=== PATIENT | female | born 1990 | race Caucasian/White ===

== ENCOUNTER → 2016-12-05 | Emergency (ER) | payer SELFPAY | END | disposition home or self-care (01) | LOC: ER 01:56 | DX: H57.8 Other specified disorders of eye and adnexa (principal); Z53.21 Procedure and treatment not carried out due to patient leaving prior to being seen by health care provider ==

== ENCOUNTER 2020-02-12 23:40 | Emergency (ER) | payer SELFPAY ==
[~2020-02-12] VITALS: Ht 162.6 cm; Wt 56.7 kg
--- NOTE | 2020-02-13 00:15 | NUR ---
Dr. Badillo at bedside for [facility]SE.
[2020-02-13 00:44] LABS: CARBON DIOXIDE 27 mmol/L (21-32); CHLORIDE 103 mmol/L (98-107); CREATININE 0.8 mg/dL (0.6-1.3); GLUCOSE 92 mg/dL (74-106); POTASSIUM 3.6 mmol/L (3.5-5.1); UREA NITROGEN, BLOOD 11 mg/dL (7-18)
[2020-02-13 00:46] LABS: HEMATOCRIT 39.9 % (37-47); HEMOGLOBIN 13.8 G/DL (12.0-16.0); LYMPHOCYTES % (AUTO) 26.4 % (20.5-51.5); MEAN CORPUSCULAR HEMOGLOBIN 33.3 UUG (27.0-31.0); MEAN CORPUSCULAR HGB CONC 35 g/dL (32.0-37.0); MONOCYTES % (AUTO) 7.5 % (0.0-11.0); NEUTROPHILS % (AUTO) 64.6 % (38.5-71.5); PLATELET COUNT (AUTO) 336 K/UL (150-450); RED BLOOD CELL COUNT(AUTO) 4.15 MIL/UL (4.2-5.4); WHITE BLOOD COUNT (AUTO) 7.8 K/UL (4.0-11.2)
[2020-02-13 00:47] LABS: BASOPHILS % (AUTO) 0.5 % (0.0-2.0); EOSINOPHILS # (AUTO) 0.1 K/uL (0.0-0.7); MONOCYTES # (AUTO) 0.6 K/UL (0.1-1.30)
[2020-02-13 00:50] LABS: ALANINE AMINOTRANSFERASE 21 U/L (14-59); ALKALINE PHOSPHATASE 58 U/L (50-136); ASPARTATE AMINOTRANSFERASE 14 U/L (15-37); BILIRUBIN,DIRECT 0.1 mg/dL (0.0-0.2); BILIRUBIN,TOTAL 0.3 mg/dL (0.2-1.0); TOTAL PROTEIN, SERUM 7.5 g/dL (6.4-8.2)
--- NOTE | 2020-02-13 01:02 | NUR ---
Pt resting in bed at this time, labs pending. No signs of distress. No active vaginal bleeding at this time.
--- NOTE | 2020-02-13 01:38 | NUR ---
Patient discharged to home in stable condition. Ambulated with steady gait. took all belongs, no signs of acute distress noted. Written and verbal after care instructions given. Patient verbalizes understanding of instructions. Stressed follow up or return to ER for worsening s/s.
[2020-02-13 01:42] VITALS: BP 128/78
== END 2020-02-13 01:40 | disposition home or self-care (01) ==
LOC: ER 23:42
DX: N93.9 Abnormal uterine and vaginal bleeding, unspecified (principal)
CPT/HCPCS: 36415; 85025; A4663

== ENCOUNTER 2022-05-18 02:12 | Emergency (ER) | payer OTHER ==
[~2022-05-18] VITALS: Ht 162.6 cm; Wt 56.7 kg
[2022-05-18] MEDS ORDERED: KETOROLAC TROMETHAMINE 30 MG INJ IVP ONE (02:45)
[2022-05-18] MEDS ORDERED: IV NORMAL SALINE 1000 ML BAG IV ONE (02:45)
[2022-05-18 02:58] LABS: HEMATOCRIT 38.4 % (31.2-41.9); MEAN CORPUSCULAR VOLUME 87.7 fL (75.5-95.3); PLATELET COUNT (AUTO) 439 K/uL (179-408)
[2022-05-18] MEDS ORDERED: KETOROLAC TROMETHAMINE 30 MG INJ ONE (03:05)
[2022-05-18 03:07] LABS: CARBON DIOXIDE 25 mmol/L (21-32); CHLORIDE 102 mmol/L (98-107); CREATININE 0.9 mg/dL (0.6-1.3); GLUCOSE 104 mg/dL (74-106); POTASSIUM 3.4 mmol/L (3.5-5.1); UREA NITROGEN, BLOOD 16 mg/dL (7-18)
[2022-05-18 03:13] LABS: ALANINE AMINOTRANSFERASE 34 U/L (14-59); ALKALINE PHOSPHATASE 98 U/L (50-136); ASPARTATE AMINOTRANSFERASE 15 U/L (15-37); BILIRUBIN,DIRECT 0.1 mg/dL (0.0-0.2); BILIRUBIN,TOTAL 0.5 mg/dL (0.2-1.0); LIPASE 140 U/L (73-393); TOTAL PROTEIN, SERUM 8.2 g/dL (6.4-8.2)
[2022-05-18 05:35] LABS: *BILIRUBIN,URIN NEGATIVE (NEGATIVE); *BLOOD, URINE 2+ (NEGATIVE); *COLOR,URINE YELLOW (YELLOW); *KETONES,URINE NEGATIVE (NEGATIVE); *UROBILINOGEN,URINE 0.2 E.U./dl (NORMAL); LEUKOCYTE ESTERASE ,URINE 1+ (NEGATIVE); NITRITE, URINE POSITIVE (NEGATIVE); UGLUCOSE NEGATIVE (NEGATIVE)
[2022-05-18 05:40] LABS: *CLARITY,URINE SLIGHTLY CLOUDY (CLEAR)
[2022-05-18 05:41] LABS: *URINE HCG, QUAL NEGATIVE (NEGATIVE)
[2022-05-18 05:42] LABS: RBC,URINE 50-80 /HPF (0-3)
[2022-05-18 05:43] LABS: BACTERIA,URINE MA /HPF (NONE SEEN); SQUAMOUS EPITHELIAL CELL,UR FEW /HPF (NONE SEEN)
[2022-05-18] MEDS ORDERED: CEFTRIAXONE 1 G in IV DEXTROSE 5% 50 ML IV ONE (05:45)
[2022-05-18] MEDS ORDERED: CEFTRIAXONE /D5W 50ML IVPB **ER PYXIS IV ONE (05:58)
--- NOTE | 2022-05-18 06:05 | NUR ---
Dr. Leggett speaking with Dr. Rivero of [facility]. Dr. Rivero accepted patient for transfer to [facility].
--- NOTE | 2022-05-18 07:15 | NUR ---
Received patient resting in bed, easily arousable. AO x 4. No acute distress noted at this moment. Safety precautions in place. Will continue to monitor patient.
--- NOTE | 2022-05-18 07:44 | NUR ---
Gave report to [facility]. Patient to go to room 2259.
--- NOTE | 2022-05-18 08:28 | NUR ---
Set up transportation with [facility] from [facility] ambulance. ETA [id number]
--- NOTE | 2022-05-18 09:45 | NUR ---
Patient picked up by [facility] ambulance
== END 2022-05-18 09:45 | disposition short-term general hospital (02) ==
LOC: ER 02:20
DX: N13.6 Pyonephrosis (principal); Z20.822 Contact with and (suspected) exposure to COVID-19
CPT/HCPCS: 99285; 74176; 96365; 96375; 87426; 80076; 80048; 81001; 84703; 83690; 85025; 84702; 36415; 87040; J0696; J1885; J7040; A4663